=== PATIENT | male | born 1950 | race Caucasian/White ===

== ENCOUNTER → 2021-05-25 | Outpatient (CLI) | payer OTHER ==
[~2021-05-25] MED LIST: ASA81BEC PO; CRESTOR20 MG PO; FEXOFENADINE-P1 EACH PO; FLONASE 0.05%50 MCG NASAL; LISINOPRIL10 MG PO
== END ==
LOC: SJCVCIMAG 10:37
PROVIDERS: ATTEND Internal Medicine Cardiovascular Disease
DX: I65.23 Occlusion and stenosis of bilateral carotid arteries (principal); R94.31 Abnormal electrocardiogram [ECG] [EKG]; I49.3 Ventricular premature depolarization; R93.1 Abnormal findings on diagnostic imaging of heart and coronary circulation; I10 Essential (primary) hypertension; R07.89 Other chest pain; E11.9 Type 2 diabetes mellitus without complications; E78.5 Hyperlipidemia, unspecified; Z82.49 Family history of ischemic heart disease and other diseases of the circulatory system

== ENCOUNTER 2021-05-26 06:24 | Inpatient (IN) | payer OTHER ==
[~2021-05-26] VITALS: Ht 170.2 cm; Wt 98.0 kg
[2021-05-26 07:11] VITALS: BP 142/75
[2021-05-26] MEDS ORDERED: FEXOFENADINE-P1 EACH PO (07:21)
[2021-05-26] MEDS ORDERED: ASA81BEC PO (07:21)
[2021-05-26] MEDS ORDERED: FLONASE 0.05%50 MCG NASAL (07:22)
[2021-05-26] MEDS ORDERED: CRESTOR20 MG PO (07:23)
[2021-05-26] MEDS ORDERED: LISINOPRIL10 MG PO (07:23)
[2021-05-26 07:27] LABS: HEMATOCRIT 43.3 % (42.0-52.0); HEMOGLOBIN 14.6 gm/dL (14.0-18.0); MCH 30.1 pg (26.0-34.0); MCHC 33.8 g/dL (28.0-37.0); MCV 88.9 fL (80.0-100.0); RBC 4.87 mil/uL (4.50-6.00); RDW 14.1 % (10.5-14.5); WBC 8.9 thou/uL (4.0-11.0)
--- NOTE | 2021-05-26 07:28 | EKG ---
[facility] [place] [address] ELECTROCARDIOGRAM REPORT Name: DANIAL PAPPAS Room #: [facility]#: [id number] Admission: 05/26/21 Attend Phys: George Mckeon MD, Discharge: Date of : 52 Report #: [id number] [facility] Test Date: 2021-05-26 Test Time: 07:22:16 Pat Name: DANIAL PAPPAS Department: Room: Gender: Roller Stitcher: SBULOW : 1950 Requested By: George Mckeon Order Number: [id number] MD: Teofilo Wilson Measurements Intervals [place] Rate: 62 P: -5 LA: 190 QRS: -18 QRSD: 86 T: 6 QT: 408 QTc: 415 Interpretive Statements Sinus rhythm Borderline left axis deviation Low voltage, precordial leads Abnormal R-wave progression, early transition No previous ECG available for comparison Electronically Signed On 05-26-2021 7:28:16 CDT by Teofilo Wilson [email or web address] <ELECTRONICALLY SIGNED> By: Teofilo Wilson MD, [facility] 05/26/21727 1 1 Teofilo Wilson MD, FACC /EPI
[2021-05-26 07:57] LABS: CALCIUM 8.9 mg/dL (8.5-10.1); POTASSIUM 4.1 mmol/L (3.5-5.1)
[2021-05-26 09:25] VITALS: BP 143/78
--- NOTE | 2021-05-26 10:20 | NUR ---
RECEIVED PT FROM [employer] AT 0917. PT ON BEDREST UNTIL 1200. PT VOICES NO CONCERNS AT THIS TIME. DR DALAL CONSULTED FOR OPEN HEART SURGERY TOMORROW. PTS AT BEDSIDE. ADMISSION ASSESSMENT AND DETAILS COMPLETED CHARTED. VSS. WILL CONTINUE TO MONITOR AND FOLLOW POC.
[2021-05-26 10:24] LABS: ABSOLUTE NEUTROPHILS 3.7 thou/uL (1.4-8.2); BASOPHILS 0.9 % (0.0-2.0); EOSINOPHILS 4.6 % (0.0-3.0); HEMATOCRIT 42.2 % (42.0-52.0); LYMPHOCYTES 40.2 % (24.0-44.0); MCH 29.8 pg (26.0-34.0); MCHC 33.2 g/dL (28.0-37.0); MCV 89.7 fL (80.0-100.0); MONOCYTES 10.9 % (1.0-8.0); PLATELET COUNT 261 thou/uL (150-400); POLYS 43.4 % (36.0-66.0); RBC 4.71 mil/uL (4.50-6.00); RDW 14.3 % (10.5-14.5); WBC 8.4 thou/uL (4.0-11.0)
[2021-05-26 10:36] LABS: ALBUMIN 3.5 g/dL (3.4-5.0); TOTAL BILIRUBIN 0.6 mg/dL (0.2-1.0); TOTAL PROTEIN 6.9 g/dL (6.4-8.2)
[2021-05-26 10:56] LABS: APTT 25.6 Seconds (24.5-32.8); INR 0.99; PROTIME 10.8 Seconds (10.5-12.1)
--- NOTE | 2021-05-26 11:59 | NUR ---
PT LAYING IN BED, PTS BEDREST IS UP AT 1200. PTS GROIN SITE LOOKS CLEAN, DRY WITH DRESSING INTACT AND NO HEMATOMA PRESENT. VSS. PT VOICES NO CONCERNS AT THIS TIME. WILL CONTINUE TO MONITOR AND FOLLOW POC.
--- NOTE | 2021-05-26 14:12 | 2DMMODE ---
[facility] [place] [address] 2 D/M-MODE ECHOCARDIOGRAM Name: DANIAL PAPPAS Room #: 219-P ADM IN M.R.#: [id number] Admission: 05/26/21 Attend Phys: George Mckeon MD, Discharge: Date of : 52 Report #: [id number] THIS REPORT FOR: cc: Buddy Graham James R. DO Park, Jin S. MD ~ APPROVED REPORT Study performed: 05/26/2021 12:50:17 EXAM: Comprehensive 2D, Doppler, and color-flow Echocardiogram Patient Location: Bedside Room #: 219 Status: routine BSA: 2.11 HR: 65 bpm BP: 143/78 mmHg Rhythm: NSR Other Information Study Quality: Adequate Indications CAD, Pre-Op CABG. 2D Dimensions RVDd: 37.13 mm IVSd: 10.56 (7-11mm) LVOT Diam: 20.81 (18-24mm) LVDd: 55.57 mm PWd: 9.81 (7-11mm) Ascending Ao: 34.40 (22-36mm) LVDs: 40.69 (25-40mm) Left Atrium: 40.08 (27-40mm) Aortic Root: 32.40 mm Volumes Left Atrial Volume (Systole) Single Plane 4CH: 50.39 mL Single Plane 2CH: 51.56 mL LA ESV Index: 27.00 mL/m2 Aortic Valve AoV Peak Shant.: 1.63 m/s AO Peak Gr.: 10.58 mmHg LVOT Max P.18 mmHg LVOT Max V: 1.02 m/s HAYDEE Vmax: 2.14 cm2 [facility] [address] [place] [address] 2 D/M-MODE ECHOCARDIOGRAM Name: DANIAL PAPPAS Room #: 219-P [facility]#: [id number] Admission: 05/26/21 Attend Phys: George Mckeon, Discharge: Date of : 52 Report #: [id number] Mitral Valve E/A Ratio: 0.8 MV Decel. Time: 160.67 ms MV E Max Shant.: 0.87 m/s MV A Shant.: 1.07 m/s MV PHT: 46.59 ms IVRT: 83.04 ms Pulmonary Valve PV Peak Shant.: 0.96 m/s PV Peak Gr.: 3.66 mmHg Pulmonary Vein P Vein S: 0.58 m/s P Vein A: 0.25 m/s P Vein D: 0.44 m/s P Vein A Dur.: 110.7 msec P Vein S/D Ratio: 1.32 Tricuspid Valve TR Peak Shant.: 2.47 m/s RAP Estimate: 5.00 mmHg TR Peak Gr.: 24.40 mmHg PA Pressure: 29.00 mmHg Left Ventricle The left ventricle is normal size. Regional wall motion abnormalities are noted. Mild basal septal hypertrophy is present. Left ventricular systolic function is mildly decreased. LVEF is 45-50%. Mild diastolic dysfunction is present (impaired relaxation pattern). Right Ventricle The right ventricle is normal size. The right ventricular systolic function is normal. Atria The left atrium size is normal. The right atrium size is normal. Aortic Valve The aortic valve is normal in structure; leaflets are calcified. No aortic regurgitation is present. There is no aortic valvular stenosis. Mitral Valve The mitral valve is normal in structure. Mild to moderate mitral regurgitation. Tricuspid Valve [facility] [address] [place] [address] 2 D/M-MODE ECHOCARDIOGRAM Name: DANIAL PAPPAS Room #: 219-P [facility] IN M.R.#: [id number] Admission: 05/26/21 Attend Phys: George Mckeon, Discharge: Date of : 52 Report #: [id number] The tricuspid valve is normal in structure. Trace tricuspid regurgitation. Estimated PAP is 30mmHg. Pulmonic Valve The pulmonary valve is normal in structure. There is no pulmonic valvular regurgitation. Great Vessels The aortic root is normal in size. The ascending aorta is normal in size. Pericardium There is no pericardial effusion. <Conclusion> The left ventricle is normal size. Left ventricular systolic function is mildly decreased. LVEF is 45-50%. Mild diastolic dysfunction is present (impaired relaxation pattern). The right ventricle is normal size. The left atrium size is normal. The aortic valve is normal in structure; leaflets are calcified. Mild to moderate mitral regurgitation. Trace tricuspid regurgitation. Estimated PAP is 30mmHg. <ELECTRONICALLY SIGNED> By: Alex Castellanos MD 05/26/211410 10 10 Alex Castellanos MD /INF
[2021-05-26 16:00] VITALS: BP 154/95
--- NOTE | 2021-05-26 16:32 | NUR ---
PT IN BED, PT HAS UNDERGONE MULTIPLE TESTING FOR CABG TOMORROW. ASSESSMENT UNCHANGED. VSS. WILL CONTINUE TO MONITOR AND FOLLOW POC.
[2021-05-26 19:46] VITALS: BP 137/65
[2021-05-26 23:35] VITALS: BP 145/64
[2021-05-27] VITALS (31 sets, daily range): BP systolic 84–133; BP diastolic 44–84
[2021-05-27 00:06] LABS: GLYCOHEMOGLOBIN (HGB A1C) 6.8 % (4.8-5.6)
--- NOTE | 2021-05-27 05:26 | NUR ---
PM AND AM SHOWER COMPLETED. TELEMETRY ON BACK. DENIES COMPLAINTS OF CHEST PAIN OR SHORTNESS OF AIR. SLEPT MOST OF SHIFT. RIGHT GROIN DSG C/D/I AND SITE WITHOUT BLEEDING OR HEMOTOMA. AWAITING PREOP FOR AM OHS. CONTINUE TO ASSES. DAUGHTER AT BEDSIDE.
--- NOTE | 2021-05-27 07:29 | NUR ---
REPORT CALLED TO RODRI IN ICU.
[2021-05-27 12:41] LABS: HEMATOCRIT 33.8 % (42.0-52.0); MCH 30.1 pg (26.0-34.0); MCHC 33.1 g/dL (28.0-37.0); MCV 90.8 fL (80.0-100.0); RBC 3.73 mil/uL (4.50-6.00); RDW 14.6 % (10.5-14.5); WBC 17.5 thou/uL (4.0-11.0)
[2021-05-27 12:46] LABS: POC BE 2 mmol/L (-2.0 to +3.0); POC CA IONIZED 5.5 mg/dL (4.5-5.3); POC GLUCOSE 140 mg/dL (70-99); POC HCO3 26.6 mmol/L (22.0-26.0); POC HEMOGLOBIN 15.3 g/dL (14.0-18.0); POC POTASSIUM 4.5 mmol/L (3.5-5.1); POC SODIUM 139 mmol/L (136-145); POC pCO2 44.4 mmHg (35.0-45.0); POC pH 7.385 (7.360-7.450)
[2021-05-27 12:46] LABS: HEMOGLOBIN 11.2 gm/dL (14.0-18.0)
[2021-05-27 13:10] LABS: APTT 24.4 Seconds (24.5-32.8); PROTIME 14.6 Seconds (10.5-12.1)
[2021-05-27 13:12] LABS: INR 1.36
[2021-05-27 13:30] LABS: POC BE 0 mmol/L (-2.0 to +3.0); POC CA IONIZED 4.4 mg/dL (4.5-5.3); POC GLUCOSE 137 mg/dL (70-99); POC HCO3 25.2 mmol/L (22.0-26.0); POC HEMOGLOBIN 12.9 g/dL (14.0-18.0); POC SODIUM 136 mmol/L (136-145); POC pH 7.367 (7.360-7.450)
[2021-05-27 13:30] LABS: POC BE 2 mmol/L (-2.0 to +3.0); POC CA IONIZED 4.7 mg/dL (4.5-5.3); POC GLUCOSE 139 mg/dL (70-99); POC HCO3 27.2 mmol/L (22.0-26.0); POC POTASSIUM 4.7 mmol/L (3.5-5.1); POC SODIUM 140 mmol/L (136-145); POC pCO2 47.2 mmHg (35.0-45.0); POC pH 7.368 (7.360-7.450)
[2021-05-27 13:30] LABS: POC BE 3 mmol/L (-2.0 to +3.0); POC CA IONIZED 4.3 mg/dL (4.5-5.3); POC GLUCOSE 187 mg/dL (70-99); POC HCO3 27.9 mmol/L (22.0-26.0); POC HEMOGLOBIN 12.6 g/dL (14.0-18.0); POC SODIUM 140 mmol/L (136-145); POC pCO2 43.4 mmHg (35.0-45.0); POC pH 7.415 (7.360-7.450)
[2021-05-27 13:31] LABS: POC BE 3 mmol/L (-2.0 to +3.0); POC CA IONIZED 4.4 mg/dL (4.5-5.3); POC GLUCOSE 171 mg/dL (70-99); POC HCO3 27.3 mmol/L (22.0-26.0); POC HEMOGLOBIN 12.6 g/dL (14.0-18.0); POC POTASSIUM 5.4 mmol/L (3.5-5.1); POC SODIUM 139 mmol/L (136-145)
[2021-05-27 13:31] LABS: POC BE 3 mmol/L (-2.0 to +3.0); POC CA IONIZED 4.4 mg/dL (4.5-5.3); POC GLUCOSE 151 mg/dL (70-99); POC HCO3 27.5 mmol/L (22.0-26.0); POC HEMOGLOBIN 12.2 g/dL (14.0-18.0); POC POTASSIUM 5.3 mmol/L (3.5-5.1); POC SODIUM 137 mmol/L (136-145); POC pCO2 41.9 mmHg (35.0-45.0); POC pH 7.424 (7.360-7.450)
[2021-05-27 13:31] LABS: POC BE -1 mmol/L (-2.0 to +3.0); POC GLUCOSE 147 mg/dL (70-99); POC HCO3 24.3 mmol/L (22.0-26.0); POC HEMOGLOBIN 12.9 g/dL (14.0-18.0); POC POTASSIUM 4.4 mmol/L (3.5-5.1); POC SODIUM 141 mmol/L (136-145); POC pCO2 41.7 mmHg (35.0-45.0); POC pH 7.373 (7.360-7.450)
[2021-05-27 13:31] LABS: POC BE -1 mmol/L (-2.0 to +3.0); POC CA IONIZED 5.4 mg/dL (4.5-5.3); POC GLUCOSE 163 mg/dL (70-99); POC HCO3 24.4 mmol/L (22.0-26.0); POC HEMOGLOBIN 11.9 g/dL (14.0-18.0); POC POTASSIUM 4.7 mmol/L (3.5-5.1); POC SODIUM 139 mmol/L (136-145); POC pCO2 42.9 mmHg (35.0-45.0); POC pH 7.362 (7.360-7.450)
--- NOTE | 2021-05-27 13:43 | NUR ---
Nutrition: Pt having CABG today. RD will followup and address education needs when out of ICU/closer to D/C.
--- NOTE | 2021-05-27 14:00 | NUR ---
1352- PATIENT ARRIVED FROM OR TO ICU POST OP CABG X2. OR STAFF AND ICU STAFF IN ROOM TO ASSIST WITH SETTLING INTO ICU ROOM WITH HEMODYNAMIC MONITORING.
[2021-05-27 14:01] LABS: BE(vivo) -4.4 mmol/L (-2 to +3); HCO3 22.2 mmol/L (22.0-26.0); PCO2 46.6 mmHg (35.0-45.0); PO2 96.6 mmHg (80.0-100.0); sO2 96.6 % (92.0-98.0)
[2021-05-27 14:02] LABS: pH 7.296 (7.360-7.450)
[2021-05-27 14:10] LABS: HEMATOCRIT 38.9 % (42.0-52.0); HEMOGLOBIN 12.7 gm/dL (14.0-18.0); MCH 29.5 pg (26.0-34.0); MCHC 32.6 g/dL (28.0-37.0); MCV 90.3 fL (80.0-100.0); RBC 4.31 mil/uL (4.50-6.00); RDW 14.6 % (10.5-14.5); WBC 21.9 thou/uL (4.0-11.0)
[2021-05-27 14:22] LABS: CALCIUM 8.4 mg/dL (8.5-10.1); CREATININE 1.2 mg/dL (0.7-1.3); MAGNESIUM 2.4 mg/dL (1.8-2.4); POTASSIUM 4.4 mmol/L (3.5-5.1)
[2021-05-27 14:36] LABS: APTT 25.1 Seconds (24.5-32.8); INR 1.1; PROTIME 11.9 Seconds (10.5-12.1)
[2021-05-27 15:53] LABS: BE(vivo) -5.5 mmol/L (-2 to +3); HCO3 20.5 mmol/L (22.0-26.0); PCO2 41.9 mmHg (35.0-45.0); pH 7.308 (7.360-7.450); sO2 96.7 % (92.0-98.0)
--- NOTE | 2021-05-27 16:00 | NUR ---
1600- ALBUMIN PROVIDED PER DR. LIMA VERBAL ORDER FOR CVP 10 AND HYPOTENSION. HEMODYNAMIC MONITORING DOCUMENTED. PATIENT WAKING UP AND GOING TO GET EXTUBATED. JACQUELINE RN, ASSUMED CARE OF PATIENT AROUND 3PM.
--- NOTE | 2021-05-27 16:58 | CATHLAB ---
[facility] [place] [address] INVASIVE PROCEDURE REPORT Name: DANIAL PAPPAS Room #: 248-P ADM IN M.R.#: [id number] Admission: 05/26/21 Attend Phys: George Mckeon MD, Discharge: Date of : 52 Report #: [id number] THIS REPORT FOR: cc: Buddy Graham James R. DO Mancuso, Gerald M. MD [facility] ~ APPROVED REPORT Study performed: 05/26/2021 07:42:54 Patient Details Patient Status: Out-Patient Room #: The patient is a 70 year-old male Event Personnel George Mckeon Student Dean, Bryanna Vasquez RTR Monitor, Cherelle Lambert RN RN, Maria Teresa Nolan RTR, KRYSTLE Scrub, Janae Walker RTR Scrub Procedures Performed Art Access - R femoral artery* Left Heart Cath w/or w/o Coronaries [id number] [facility] Aortogram Abdominal Peripheral Angio 207277 Hemostasis w/ Mynx 24798 Initial Mod Sed Same Phys/QHP Gr5y 855090 49549 Mod Sed Same Phys/QHP Ea 360722 Procedure Narrative The Right Groin^ was infiltrated with 1% Lidocaine subcutaneous anesthesia. A PINNACLE 6FR Sheath #[id number] sheath was inserted into the RFA^. Coronary angiography was performed using coronary diagnostic catheters. The right coronary system was accessed and visualized with a JR4 catheter. The left coronary system was accessed and visualized with a JL4 catheter. The left ventricle was accessed and visualized with a PIGTAIL catheter. Left ventriculogram was performed in 30 degree projection. An aortogram of the abdominal aorta was performed. Closure device was deployed with a Fr MYNXGRIP 6/7F #[id number]. The patient tolerated the procedure well and there were no complications associated with the procedure. There was no hematoma. Intraoperative Conscious Sedation Sedation start time: 8:30 Case end Time: 8:56 Fentanyl 50 mcg Versed 1 mg [address] [place] [address] INVASIVE PROCEDURE REPORT Name: DANIAL PAPPAS Room #: 248-P [facility] IN .R.#: [id number] Admission: 05/26/21 Attend Phys: George Mckeon, Discharge: Date of : 52 Report #: [id number] Fluoro Time: 1.70 minutes Dose: DAP 6443.40 cGycm2 798 mGy Contrast Type and Amount: Omnipaque 100 ml Hemodynamics The left ventricular pressure is 143/9 mmHg with a mean of mmHg. The left ventricular end diastolic pressure is 23 mmHg. Conclusion #1. Left main with some distal tapered narrowing of 30% giving rise to LAD and circumflex. 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 #3 circumflex OM with an eccentric 70 to 80% proximal lesion and then a subtotaled first OM which is large and then distally a occluded PDA off of the presumably dominant circumflex which does fill collaterally. #4 nondominant right coronary artery with moderate disease #5 normal left jugular size and systolic function with subtle anterior apical wall leg EF 50% #6 abdominal aorta is mildly ectatic aorta no aneurysm brisk flow is noted. Renal arteries widely patent. Recommendations and plan: Continue aggressive risk factor modification. Patient transferred to CCU will need revascularization by bypass surgery. Significant high-grade disease left main equivalent with coronary aneurysm this would not be amenable to coronary stenting. <ELECTRONICALLY SIGNED> By: George Mckeon MD, FACC 05/27/211657 57 57 George Mckeon MD, FACC /INF
--- NOTE | 2021-05-27 22:59 | NUR ---
Patient is having a lot of pain causing him to breathe very shallow. Patient has good cough effort, breath sounds diminished with no crackles. O2 sats 88-89%. Breathing treatment given. Encourage cough/deep breathing. O2 sats still low. Increased O2 to 10 liters HF and 50% venti mask. O2 sats increased to 95%
[2021-05-28] VITALS (18 sets, daily range): BP systolic 95–121; BP diastolic 51–71
[2021-05-28 05:12] LABS: HEMATOCRIT 37.6 % (42.0-52.0); HEMOGLOBIN 12.3 gm/dL (14.0-18.0); MCH 29.7 pg (26.0-34.0); MCHC 32.8 g/dL (28.0-37.0); MCV 90.5 fL (80.0-100.0); RBC 4.15 mil/uL (4.50-6.00); RDW 14.5 % (10.5-14.5); WBC 16.8 thou/uL (4.0-11.0)
[2021-05-28 05:24] LABS: CALCIUM 8.2 mg/dL (8.5-10.1); MAGNESIUM 2.3 mg/dL (1.8-2.4); POTASSIUM 3.8 mmol/L (3.5-5.1)
--- NOTE | 2021-05-28 05:35 | NUR ---
Patient had a lot of pain at the beginning of the shift. After several doses of pain medicaiton, patient is a lot more comfortable. Blood pressure and resp rate much improved. Heart rate and rhythm stable. Blood pressures stable on a little Cardene. Patient is off the venti mask and just on the 10L HF NC at this time. Minimal drainage from chest tubes. Adequate U/O. Continues on Insulin gtt, see flowsheet for blood sugars. Am labs sent. Results noted. Patient is progressing towards goals. Spoke with the patient , gave update on patient condition. See documentation on interventions for assessment details.
--- NOTE | 2021-05-28 07:27 | EKG ---
[address] [place] [address] ELECTROCARDIOGRAM REPORT Name: DANIAL PAPPAS Room #: 248-P ADM IN M.R.#: [id number] Admission: 05/26/21 Attend Phys: George Mckeon MD, Discharge: Date of : 52 Report #: [id number] [facility] Test Date: 2021-05-27 Test Time: 15:32:01 Pat Name: DANIAL PAPPAS Department: Room: 248 Gender: M Stock Shipper: FSCHWALBE : 1950 Requested By: Min Perez Order Number: [id number] MD: Teofilo Wilson Measurements Intervals [place] Rate: 92 P: 57 TN: 201 QRS: -47 QRSD: 133 T: 46 QT: 403 QTc: 499 Interpretive Statements Sinus rhythm RBBB and LAFB Baseline wander in lead(s) II,III,aVF,V2,V3 Compared to ECG 05/26/2021 07:22:16 Left anterior fascicular block now present Right bundle-branch block now present Electronically Signed On 05-28-2021 7:27:44 CDT by Teofilo Wilson [email or web address] <ELECTRONICALLY SIGNED> By: Teofilo Wilson MD, [facility] 05/28/21 0727 153 153 Teofilo Wilson MD, [facility] /EPI
--- NOTE | 2021-05-28 08:14 | EKG ---
[place] [address] [facility] [address] ELECTROCARDIOGRAM REPORT Name: DANIAL PAPPAS Room #: 248-P ADM IN M.R.#: [id number] Admission: 05/26/21 Attend Phys: George Mckeon MD, Discharge: Date of : 52 Report #: [id number] [facility] Test Date: 2021-05-28 Test Time: 07:28:49 Pat Name: DANIAL PAPPAS Department: Room: 248 P Gender: M Front Elevator Operator: TERRI : 1950 Requested By: Min Perez Order Number: [id number] MD: Riley Katz Measurements Intervals [place] Rate: 76 P: 45 NE: 180 QRS: -39 QRSD: 106 T: 9 QT: 416 QTc: 468 Interpretive Statements Sinus rhythm Left ventricular hypertrophy Right bundle branch block Diffuse ST segment elevation, consider postoperative pericarditis Compared to ECG 05/27/2021 15:32:01 Repolarization abnormality is now present Electronically Signed On 05-28-2021 8:14:12 CDT by Riley Katz [email or web address] <ELECTRONICALLY SIGNED> By: Riley Katz MD, [facility] 05/28/21813 7 7 Riley Katz MD, [facility] /EPI
--- NOTE | 2021-05-28 08:30 | NUR ---
Assummed care of this patient at 0700. Cardene drip turned off and O2 sat noted to increased to 94 to 95%. Venti mask removed. Will continue to monitor.
--- NOTE | 2021-05-28 08:41 | NUR ---
Case opened to follow for dc planning. Pt transfered to ICU yesterday s/p CABGx2. He was indep prior to admissions and lives with his . He has a pcp and health insurance in place for f/u care. Pt is extubated and will be evaluated by PT/OT and cardiac rehab. Cm to follow along for any HH/rehab referrals pending his progress.
--- NOTE | 2021-05-28 13:00 | NUR ---
O2 weaned down to 6L/HNC. [place] DC'd and nia wrap from left leg removed. Will continue to monitor.
--- NOTE | 2021-05-28 16:49 | NUR ---
Patient is up in the chair. Pain addressed with pain level at a 4-5 with activity. Monitor stable. Family at bedside.
--- NOTE | 2021-05-28 19:41 | NUR ---
PATIENT IS PROGRESSING TOWARDS OUTCOME GOALS.
[2021-05-29] VITALS (7 sets, daily range): BP systolic 94–124; BP diastolic 46–92
--- NOTE | 2021-05-29 05:00 | NUR ---
MEDIASTINAL CHEST TUBES REMOVED BY RN. TOTAL OF 100 CC OUT THIS SHIFT.
[2021-05-29 05:23] LABS: HEMATOCRIT 36.5 % (42.0-52.0); HEMOGLOBIN 12.1 gm/dL (14.0-18.0); MCH 29.9 pg (26.0-34.0); MCHC 33.1 g/dL (28.0-37.0); MCV 90.2 fL (80.0-100.0); RBC 4.05 mil/uL (4.50-6.00); RDW 14.8 % (10.5-14.5); WBC 19.4 thou/uL (4.0-11.0)
[2021-05-29 05:42] LABS: ALBUMIN 3.2 g/dL (3.4-5.0); CALCIUM 8.4 mg/dL (8.5-10.1); CREATININE 1.1 mg/dL (0.7-1.3); POTASSIUM 4.6 mmol/L (3.5-5.1); TOTAL BILIRUBIN 0.6 mg/dL (0.2-1.0); TOTAL PROTEIN 6.8 g/dL (6.4-8.2)
--- NOTE | 2021-05-29 06:00 | NUR ---
PT IS AWAKE AND ALERT PLEASANT aND COOPERATIVE. CHEST DRESSING INTACT. LUNGS ESS CLEAR AND DIMINISHED. 500 CC UO AND TOTAL OF 150 CC CHEST TUBE DRG THIS SHIFT. LEFT PLEURAL TUBE REMAINS INTACT. PAIN MEDS PRN. PROGRESSING TOWARD GOALS.
--- NOTE | 2021-05-29 10:15 | NUR ---
0830 CARE MGR SHOWING A FIB WITH A VENTICULAR RESPONSE UP TO THE 140'S BRIEFLY. NEWTON MOORE WITH CARDIOLOGY AWARE AND OK TO TRANSFER. PO MEDS GIVEN AND PATIENT CONVERTED TO NSR WITH PAC AND PVC'S, NAVEEN GROSSMAN NOTIFIED AND OK TO TRANSFER.
--- NOTE | 2021-05-29 11:20 | NUR ---
PATIENT TRANSFERRED TO PCU ROOM 214 VIA W/C WITH O2 AND PLEURAL CHEST TUBE PACER WIRES CAPPED THIS AM AT 0900. REPORT GIVEN TO CLARI ACHARYA AT THE BEDSIDE.
--- NOTE | 2021-05-29 12:16 | NUR ---
Pt is now on CCU and progressing s/p CABG. Therapy is working with him and anticipating dc to outpt f/u and cardiac rehab. Will continue to follow along should dc needs arise.
--- NOTE | 2021-05-29 12:21 | NUR ---
Chart review discussed during am rounds and los. Possible be able to move out of the ICU. S/P CABG. On nasal cannula oxygen and chest tube. He been up to recliner chair. Will cont following as needed for dc needs. Has support from and daughters. He wants outpt cardiac rehab at [facility] in [facility], when he is medically stable for dc.
--- NOTE | 2021-05-29 17:45 | NUR ---
PT TRANSFERED FROM ICU IN STABLE CONDITION. PACER WIRE AND CHEST TUBE PULLED OUT MID AFTERNOON BY KHAI GROSSMAN. PRN PAIN MED GIVEN WITH PARTIAL REILEF. NO CARDIAC OR RESPIRATORY DISTRESS NOTED. PT PROGRESSING WELL TOWARDS DISCHARGE GOAL.
[2021-05-30 02:54] VITALS: BP 111/49
--- NOTE | 2021-05-30 06:03 | NUR ---
ASSUMED CARE OF PATIENT AT 1900. PT IS A/O X4, PT VOICED CONCERNS REGARDING PAIN MANAGEMENT, THIS NURSE DISCUSSED THE IMPORTANCE OF PAIN MANAGEMENT PER POC. PT STATED UNDERSTANDING. PT REMINDED NOT TO STRAIN WHILE ATTEMPTING TO HAVE BM, AND TO INCREASE FREQUENCY OF IS, PT STATED UNDERSTANDING TO BOTH INTERVENTIONS. PT ACHIEVED IS VOL OF 1250 X 5 WHILE SPLINTING. PT DENIES CONCERNS AT THIS TIME.
[2021-05-30 07:49] VITALS: BP 106/65
--- NOTE | 2021-05-30 09:16 | O ---
[facility] [place] [address] OPERATIVE REPORT Name: DANIAL PAPPAS Room #: 214-P ADM IN M.R.#: [id number] Admission: 05/26/21 Attend Phys: George Mckeon MD, Discharge: Date of : 52 Report #: [id number] THIS REPORT FOR: cc: Buddy Graham James R. DO Forman, John M. MD ~ DOC #: [id number] cc: MD Ang Gan MD DATE OF SERVICE: 05/27/2021 PREOPERATIVE DIAGNOSIS: Coronary artery disease. POSTOPERATIVE DIAGNOSIS: Coronary artery disease. OPERATION: Coronary artery bypass x6 including left internal mammary artery to left anterior descending artery, saphenous vein to diagonal 2, ramus intermedius, marginal 1 and marginal 2, and saphenous vein to posterior descending artery and endoscopic harvest, left greater saphenous vein. SURGEON: Ang Gannon MD LEAN SENSEI: NGOC [place]. ANESTHESIA: General. INDICATIONS: The patient is a 70-year-old seen for Dr. Mckeon. The patient has severe and diffuse coronary artery disease. The patient presents with shortness of breath on exertion and had a highly positive calcium score, which led to cardiac catheterization. FINDINGS AND TECHNIQUE: After general anesthesia was established, saphenous vein was harvested using an endoscopic approach and prepared for use as a conduit. Exposure was obtained through median sternotomy. Left internal mammary artery was harvested from chest wall. Pericardial well was made. Cannulation sutures were placed. Heparin was given. Aorta was cannulated. Right atrium was cannulated. Cardioplegia needle was positioned in the aortic root. Retrograde cardioplegic catheter was placed in the coronary sinus. Cardiopulmonary bypass was established. Aorta was crossclamped. Antegrade and retrograde cardioplegia were given. Ice was poured in the pericardial well. The heart was stopped. During electromechanical arrest, the anastomoses were performed. An end-to-side anastomosis was made between vein and the posterior descending artery. This is actually better vessel than I thought we would find and was a 1.5 mm vessel. [facility] [address] [place] [address] OPERATIVE REPORT Name: MIANDANIAL Room #: 214-P [facility] IN M.R.#: [id number] Admission: 05/26/21 Attend Phys: George Mckeon MD, Discharge: Date of : 52 Report #: [id number] Cold cardioplegia was given. Separate segment of vein was sewn in end-to-side fashion to the large second marginal. Cold cardioplegia was given. The same segment of vein was sewn in [id number] fashion to a smaller first marginal. Cold cardioplegia was given. The same segment of vein was sewn in lnyu-ns-hpri fashion to the large ramus intermedius. Cold cardioplegia was given. Same segment of vein was sewn in ujgg-op-[id number] fashion to the second diagonal. Cold cardioplegia was given. Left internal mammary artery was sewn in end-to-side fashion to left anterior descending artery, there is diffuse distal disease and the anastomosis was made in the midportion of the LAD. The anastomosis was checked with the temperature technique and the Doppler. Cold cardioplegia was given. Two proximal anastomoses were performed and these were complete, warm retrograde cardioplegia was given followed by warm continuous blood to the coronary sinus. When this infusion was complete, crossclamp was removed. De-airing maneuvers were performed. The anastomoses were inspected and found to be satisfactory. As the patient warmed, nice cardiac activity resumed, chest tubes and pacing wires were placed. A marker was placed around the proximal anastomoses. When the patient was warm, he was weaned from cardiopulmonary bypass. Venous cannula was removed. Protamine was given, the aortic cannula was removed. Flows were measured in the bypass grafts. When hemostasis was satisfactory, chest was irrigated with antibiotic solution and closed in the usual fashion. The patient was taken to the Intensive Care Unit in good condition having tolerated the procedure well. All counts were reported as correct. MD MICHAEL Olivo/JULIO C <ELECTRONICALLY SIGNED> By: Ang Gannon MD 05/30/21 0916 0555 0628 Ang Gannon MD /nt
--- NOTE | 2021-05-30 09:16 | HC ---
[facility] [place] [address] CONSULTATION Name: DANIAL PAPPAS Room #: 214-P ADM IN M.R.#: [id number] Admission: 05/26/21 Attend Phys: George Mckeon MD, Discharge: Date of : 52 Report #: [id number] THIS REPORT FOR: cc: Buddy Graham James R. DO Forman, John M. MD ~ DOC #: [id number] Ang Gannon MD DATE OF SERVICE: 05/26/2021 HISTORY OF PRESENT ILLNESS: We were asked by Dr. Mckeon to see the patient. The patient is a 70-year-old with coronary artery disease. The patient states he presents with a positive calcium score, score is 1762. We also note that the patient had a stress echocardiogram. The patient states he has exertional discomfort with moderate levels of exertion such as walking on the treadmill at a 10% paced at 3-4 miles an hour. The patient also has some angina when he is in cold weather. The patient states this has been going on for some time. PAST MEDICAL HISTORY: Significant for hypertension, diabetes mellitus (diet controlled), hyperlipidemia. HOME MEDICATIONS: Includes aspirin, lisinopril, rosuvastatin. ALLERGIES: None known. SOCIAL HISTORY: The patient is and lives in the [facility]. He is a former smoker, having quit in the 90s after a 10-15-year 1-2 pack a day habit. FAMILY HISTORY: Positive for coronary artery disease with father and brother. Mother had Sjogren's syndrome. REVIEW OF SYSTEMS: GENERAL: No change in weight, fever. EYES: Denies vision change. HENT: Denies headache, hearing problems, sinus problems. CARDIAC: As mentioned in history, positive for exertional angina, no palpitations. RESPIRATORY: No cough, no shortness of breath. GASTROINTESTINAL: No nausea, vomiting, diarrhea or blood. GENITOURINARY: Denies urgency, frequency, blood. MUSCULOSKELETAL: No current bone or joint problems. SKIN: No rash or infection. NEUROLOGIC: Denies motor and or sensory dysfunction. ENDOCRINE: Denies goiter. Denies tremor. [facility] [address] [place] [place] [address] CONSULTATION Name: DANIAL PAPPAS Room #: 214-P [facility] IN .R.#: [id number] Admission: 05/26/21 Attend Phys: George Mckeon MD, Discharge: Date of : 52 Report #: [id number] PHYSICAL EXAMINATION: GENERAL: The patient is lying in bed, status post cardiac catheterization. VITAL SIGNS: Temperature is 36.9, pulse rate 71, respiratory rate 18, blood pressure 143/78. HEENT: No scleral icterus. No arcus. NECK: No mass. I hear no bruits. CHEST: Clear to auscultation. HEART: Rhythm regular, no murmur. ABDOMEN: Protuberant, soft, no mass, no tenderness. EXTREMITIES: No clubbing, cyanosis or edema. VASCULAR: 2+ dorsalis pedis pulses bilaterally. SKIN: No rash or infection. MUSCULOSKELETAL: No obvious bone or joint asymmetry or deformity. NEUROLOGICAL: No motor or sensory dysfunction. PSYCHIATRIC: Oriented x 3. Shows insight into problem. IMPRESSION: The patient has important 3-vessel coronary artery disease as based on the angiogram today. In the setting of diabetes mellitus, we recommended coronary artery bypass surgery. Risks include but are not limited to bleeding, infection, anesthesia risks, heart and lung problems, stroke and . Options and alternatives were reviewed. The patient understands all this and wishes to proceed. We will try to arrange surgery for tomorrow. Thank you for the consult. Ang Gannon MD JF/EKT <ELECTRONICALLY SIGNED> By: Ang Gannon MD 05/30/21 0916 [id number] Ang Gannon MD /nt
[2021-05-30 11:06] VITALS: BP 95/52
[2021-05-30 15:14] VITALS: BP 101/66
--- NOTE | 2021-05-30 18:47 | NUR ---
RECEIVED THE PATIENT CONSICOUS AND ORIENTED.ON OXYGEN SUPPORT VIA NASAL VANNULA SATURATING WELL.WITH STERNAL WOUND ON AMY DRESSING INTACT, WITH LEFT LEG GRAFT SITE WOUND INTACT.NOT IN DISTRESS. WAS ABLE TO AMBULATE IN THE HALLWAY THIS MORNING WITH THE PHYSICAL THERAPIST.EMCOURAGED TO USE INCENTIVE SPIROMETRY.
[2021-05-30 20:00] VITALS: BP 110/65
--- NOTE | 2021-05-31 03:37 | NUR ---
ASSUMED CARE OF PT AT 1900, PT IS A/O X4. PT IS ON 3L HFNC TOLERATING WELL. PT STATES THAT PAIN IS TOLERABLE AT 3/10. WILL CONTINUE TO WORK ON PAIN MANGAGEMENT PER POC. STERNAL DRESSING CDI WITH AMY IN PLACE FUNCTIONING APPROPRIATELY. CALL LIGHT IN REACH WITH BED IN LOWEST POSITION. WILL CONTINUE TO MONITOR PATIENT.
[2021-05-31 04:00] VITALS: BP 99/65
[2021-05-31 05:24] LABS: ABSOLUTE NEUTROPHILS 7.5 thou/uL (1.4-8.2); BASOPHILS 0.6 % (0.0-2.0); EOSINOPHILS 4.5 % (0.0-3.0); HEMATOCRIT 33.2 % (42.0-52.0); HEMOGLOBIN 11.1 gm/dL (14.0-18.0); LYMPHOCYTES 21.7 % (24.0-44.0); MCH 29.9 pg (26.0-34.0); MCHC 33.5 g/dL (28.0-37.0); MCV 89.2 fL (80.0-100.0); MONOCYTES 13.8 % (1.0-8.0); PLATELET COUNT 217 thou/uL (150-400); POLYS 59.4 % (36.0-66.0); RBC 3.72 mil/uL (4.50-6.00); RDW 14.5 % (10.5-14.5); WBC 12.7 thou/uL (4.0-11.0)
[2021-05-31 05:59] LABS: ALBUMIN 2.8 g/dL (3.4-5.0); CALCIUM 8.5 mg/dL (8.5-10.1); CREATININE 0.8 mg/dL (0.7-1.3); POTASSIUM 4.4 mmol/L (3.5-5.1); TOTAL BILIRUBIN 0.7 mg/dL (0.2-1.0); TOTAL PROTEIN 6.7 g/dL (6.4-8.2)
[2021-05-31 07:25] VITALS: BP 110/65
--- NOTE | 2021-05-31 08:14 | EKG ---
[address] [place] [address] ELECTROCARDIOGRAM REPORT Name: DANIAL PAPPAS Room #: 214-P ADM IN M.R.#: [id number] Admission: 05/26/21 Attend Phys: George Mckeon MD, Discharge: Date of : 52 Report #: [id number] [facility] Test Date: 2021-05-31 Test Time: 07:21:43 Pat Name: DANIAL PAPPAS Department: Room: 214 P Gender: M Supply Teacher: FSCHWALSTEVEN : 1950 Requested By: Min Perez Order Number: [id number] MD: Teofilo Wilson Measurements Intervals [place] Rate: 66 P: 56 LA: 171 QRS: -31 QRSD: 99 T: 7 QT: 446 QTc: 468 Interpretive Statements Sinus rhythm Baseline wander in lead(s) V6 Compared to ECG 05/28/2021 07:28:49 Left ventricular hypertrophy no longer present Right bundle-branch block no longer present ST (T wave) deviation no longer present Electronically Signed On 05-31-2021 8:14:15 CDT by Teofilo Wilson [email or web address] <ELECTRONICALLY SIGNED> By: Teofilo Wilson MD, FACC 05/31/21813 0 0 Teofilo Wilson MD, [facility] /EPI
[2021-05-31 11:45] VITALS: BP 105/71
[2021-05-31 15:00] VITALS: BP 89/53
[2021-05-31 16:00] VITALS: BP 119/66
--- NOTE | 2021-05-31 16:46 | NUR ---
PT IS AXOX4, PLEASANT. VSS, AFEBRILE SR WITH 1AVB ON MONITOR. PT HAS BEEN STAYING AHEAD OF PAIN, PAIN MGMT WITH HYDROCODONE. CARDIOLOGY CONSULTED, CV THORACIC SURGEON CONSULTED, PT/OT AND RT CONSULTED. PT TAKEN OFF OF NC TODAY, O2 SAT IN MID 90s%. PT AMY DRESSING C/D/I. TUBING EXTENSION WAS DAMAGED TODAY; RECONNECTED AND SHORTENED, GREEN LIGHT FLASING. POC IS TO CONTINUE TO PROMOTE ACTIVITY, PAIN MGMT. POSSIBLE D/C 06/01. LOW FALL PRECAUTIONS IN PLACE. NO CONCERNS AT THIS TIME.
[2021-05-31 20:15] VITALS: BP 109/65
[2021-06-01 04:45] VITALS: BP 113/52; BP 122/66
[2021-06-01 08:24] VITALS: BP 117/78
[2021-06-01] MEDS ORDERED: FERREX 150 PLU1 EAC1 PO (10:06)
[2021-06-01] MEDS ORDERED: METOPROLOL SUCC25 M1 PO (10:08)
[2021-06-01 11:11] VITALS: BP 117/78
--- NOTE | 2021-06-01 11:19 | NUR ---
PT IS AXOX4, PLEASANT. VSS, AFEBRILE, SR ON MONITOR. DENIES PAIN, RESTING COMFORTABLY IN CHAIR. AMY DRESSING CHANGED PER DR KEANE. EDUCATION COMPLETED ON DRESSING AND WOUND CARE. PT/OT CONSULTED, CARDIOLOGY CONSULTED. PT TO D/C HOME WITH FOLLOW UP WITH CARDIOLOGY. PT AT THE BEDSIDE. DISCHARGE EDUCATION COMPLETED. PT AND PT COMMUNICATED UNDERSTANDING. PT D/C HOME WITH IN PERSONAL VEHICLE.
== END 2021-06-01 11:47 | disposition home or self-care (01) | DRG 233 ==
LOC: CATH 06:24 → 2N 08:58 → ICU 08:58 → CATH 13:55 → ICU 05-27 13:59 → 2N 05-29 11:13
PROVIDERS: Physician Assistant; Surgery Vascular Surgery; ADMIT Internal Medicine Cardiovascular Disease; ATTEND Internal Medicine Cardiovascular Disease
PROC: B4101ZZ Fluoroscopy of Abdominal Aorta using Low Osmolar Contrast (ICD-10-PCS; 2021-05-26)
PROC: B2111ZZ Fluoroscopy of Multiple Coronary Arteries using Low Osmolar Contrast (ICD-10-PCS; 2021-05-26)
PROC: 4A023N7 Measurement of Cardiac Sampling and Pressure, Left Heart, Percutaneous Approach (ICD-10-PCS; 2021-05-26)
PROC: B2151ZZ Fluoroscopy of Left Heart using Low Osmolar Contrast (ICD-10-PCS; 2021-05-26)
PROC: 06BQ4ZZ Excision of Left Saphenous Vein, Percutaneous Endoscopic Approach (ICD-10-PCS; principal; 2021-05-27)
PROC: 02100Z9 Bypass Coronary Artery, One Artery from Left Internal Mammary, Open Approach (ICD-10-PCS; principal; 2021-05-27)
PROC: 5A1221Z Performance of Cardiac Output, Continuous (ICD-10-PCS; principal; 2021-05-27)
PROC: 021309W Bypass Coronary Artery, Four or More Arteries from Aorta with Autologous Venous Tissue, Open Approach (ICD-10-PCS; principal; 2021-05-27)
PROC: 5A0945A Assistance with Respiratory Ventilation, 24-96 Consecutive Hours, High Flow/Velocity Cannula (ICD-10-PCS; principal; 2021-05-27)
DX: I25.10 Atherosclerotic heart disease of native coronary artery without angina pectoris (principal); I50.23 Acute on chronic systolic (congestive) heart failure; I10 Essential (primary) hypertension; E78.5 Hyperlipidemia, unspecified; I65.23 Occlusion and stenosis of bilateral carotid arteries; E11.9 Type 2 diabetes mellitus without complications; Z20.822 Contact with and (suspected) exposure to COVID-19; Z79.82 Long term (current) use of aspirin; Z79.899 Other long term (current) drug therapy; Z87.891 Personal history of nicotine dependence; Z82.49 Family history of ischemic heart disease and other diseases of the circulatory system
CPT/HCPCS: 10078; 10081; 47000; 47001; 47002; 47297; 48889; 50249; 50668; 51301; 52259; 52287; 53327; 53358; 54118; 56455; 56524; 56525; 56526; 56527; 56528; 56531; 56668; 56719; 56760; 56898; 57093; 57167; 58585; 58856; 62110; 62950; 65003; 65020; 65090; 65120; 65135

== ENCOUNTER → 2021-11-03 | Outpatient (CLI) | payer OTHER ==
[~2021-11-03] MED LIST changes: +FERREX 150 PLU1 EAC1 PO; +METOPROLOL SUCC25 M1 PO
== END | disposition home or self-care (01) ==
LOC: SJCVCIMAG 10:23
PROVIDERS: ATTEND Internal Medicine Cardiovascular Disease
DX: I25.10 Atherosclerotic heart disease of native coronary artery without angina pectoris (principal); I10 Essential (primary) hypertension; Z95.1 Presence of aortocoronary bypass graft